=== PATIENT | female | born 1950 | race Caucasian/White ===

== ENCOUNTER → 2018-02-11 | Outpatient (CLI) | payer MEDICARE, OTHER ==
[~2018-02-11] MED LIST: AMLODIPINE BESY10 MG PO; BAYER CHEWABLE81 MG PO; FLEXERIL PO; IBUPROFEN 600600 M1 PO; LEXAPRO20 MG PO; NITROGLYCERIN0.4 MG SUBLING; NORCO 5-325 TA1 EACH PO; NORVASC10 MG PO; TOPROL XL25 MG PO; VICODIN 5-5001 EACH PO; WELLBUTRIN XL150 M1 PO; XANAX XR1 MG PO
[2018-02-11 12:47] LABS: CREATININE 0.9 mg/dL (0.6-1.3)
== END ==
LOC: M.LAB 12:19 → M.MRI 13:30
PROVIDERS: Family Medicine
DX: I10 Essential (primary) hypertension (principal); E11.9 Type 2 diabetes mellitus without complications; N64.4 Mastodynia

== ENCOUNTER → 2018-08-12 | Outpatient (CLI) | payer MEDICARE, OTHER | LOC: M.MRI 10:35 | DX: Z88.8 Allergy status to other drugs, medicaments and biological substances (principal); M22.42 Chondromalacia patellae, left knee ==

== ENCOUNTER 2020-05-14 12:20 | Emergency (ER) | payer MEDICARE, OTHER ==
[~2020-05-14] VITALS: Ht 157.5 cm; Wt 59.0 kg
[~2020-05-14 12:20] MED LIST changes: +BREO ELLIPTA 11 EACH INH; +VENTOLIN HFA 1818 GM INH
[2020-05-14] MEDS ORDERED: HYDROCODON-ACE1 EAC7 PO (13:53)
[2020-05-14] MEDS ORDERED: FLEXERIL PO (14:05)
[2020-05-14 14:08] VITALS: BP 168/81
== END 2020-05-14 14:09 | disposition home or self-care (01) ==
LOC: M.ERS 12:20
DX: M54.6 Pain in thoracic spine (principal); R07.81 Pleurodynia; I10 Essential (primary) hypertension; F17.210 Nicotine dependence, cigarettes, uncomplicated; Z88.1 Allergy status to other antibiotic agents; Z90.710 Acquired absence of both cervix and uterus

== ENCOUNTER → 2020-05-27 | Outpatient (CLI) | payer MEDICARE, OTHER ==
[~2020-05-27] MED LIST changes: +HYDROCODON-ACE1 EAC7 PO
== END ==
LOC: M.MRI 11:09
PROVIDERS: ATTEND Family Medicine
DX: M48.54XA Collapsed vertebra, not elsewhere classified, thoracic region, initial encounter for fracture (principal); M81.0 Age-related osteoporosis without current pathological fracture; M25.78 Osteophyte, vertebrae

== ENCOUNTER → 2020-06-08 | Outpatient (CLI) | payer MEDICARE, OTHER ==
[~2020-06-08] MED LIST changes: +LIPITOR 20 MG T20 M1 PO; +NIZORAL A-D125 ML TOP
== END ==
LOC: M.INT 10:39
PROVIDERS: ATTEND Family Medicine
DX: S22.068A Other fracture of T7-T8 thoracic vertebra, initial encounter for closed fracture (principal); I10 Essential (primary) hypertension; Z90.710 Acquired absence of both cervix and uterus; Z88.8 Allergy status to other drugs, medicaments and biological substances; Z79.899 Other long term (current) drug therapy; X50.9XXA Other and unspecified overexertion or strenuous movements or postures, initial encounter; Y93.89 Activity, other specified; Y92.89 Other specified places as the place of occurrence of the external cause; Y99.8 Other external cause status

== ENCOUNTER → 2020-06-09 | Outpatient (CLI) | payer MEDICARE, OTHER ==
[~2020-06-09] VITALS: Ht 157.5 cm; Wt 57.6 kg
[2020-06-09 08:38] LABS: HEMATOCRIT 45.3 % (37.0-47.0); HEMOGLOBIN 15.4 gm/dL (12.0-15.0); MCH 29.4 pg (26.0-34.0); MCHC 34.1 g/dL (28.0-37.0); MCV 86.2 fL (80.0-100.0); MPV 8.8 fl. (7.2-11.1); RBC 5.25 mil/uL (4.20-5.00); RDW-CV 12.7 % (10.5-14.5); WBC 6.9 thou/uL (4.0-11.0)
[2020-06-09 08:41] VITALS: BP 137/69
[2020-06-09 08:47] LABS: CALCIUM 9.3 mg/dL (8.5-10.1); CREATININE 0.8 mg/dL (0.6-1.3); POTASSIUM 3.1 mmol/L (3.5-5.1)
[2020-06-09 08:50] LABS: APTT 24.5 Seconds (25.0-31.3); PROTIME 10.5 Seconds (9.20-11.50)
[2020-06-09 08:51] LABS: ALBUMIN 3.9 g/dL (3.4-5.0); TOTAL PROTEIN 7.8 g/dL (6.4-8.2)
[2020-06-09 12:05] VITALS: BP 136/61
[2020-06-09 12:21] VITALS: BP 138/71
[2020-06-09 12:36] VITALS: BP 139/62
[2020-06-09 12:52] VITALS: BP 149/78
== END | disposition home or self-care (01) ==
LOC: M.INT 08:06
PROVIDERS: ATTEND Radiology Diagnostic Radiology
DX: M54.9 Dorsalgia, unspecified (principal); M80.08XA Age-related osteoporosis with current pathological fracture, vertebra(e), initial encounter for fracture; I10 Essential (primary) hypertension; M19.90 Unspecified osteoarthritis, unspecified site; J45.909 Unspecified asthma, uncomplicated; F32.9 Major depressive disorder, single episode, unspecified; F41.9 Anxiety disorder, unspecified; F17.210 Nicotine dependence, cigarettes, uncomplicated; Z98.890 Other specified postprocedural states; Z79.899 Other long term (current) drug therapy; Z90.710 Acquired absence of both cervix and uterus; Z88.8 Allergy status to other drugs, medicaments and biological substances

== ENCOUNTER → 2021-01-04 | Outpatient (CLI) | payer OTHER | LOC: M.CT 11:32 | PROVIDERS: ATTEND Family Medicine | DX: N28.89 Other specified disorders of kidney and ureter (principal); E27.8 Other specified disorders of adrenal gland; J98.4 Other disorders of lung ==

== ENCOUNTER → 2021-01-20 | Outpatient (CLI) | payer OTHER | LOC: M.ULTRA 12:26 | PROVIDERS: ATTEND Family Medicine | DX: I65.23 Occlusion and stenosis of bilateral carotid arteries (principal); I10 Essential (primary) hypertension; E78.5 Hyperlipidemia, unspecified; R22.9 Localized swelling, mass and lump, unspecified ==

== ENCOUNTER → 2021-01-20 | Outpatient (CLI) | payer OTHER | LOC: M.CT 12:21 | PROVIDERS: ATTEND Family Medicine | DX: Z13.6 Encounter for screening for cardiovascular disorders (principal) ==

== ENCOUNTER → 2021-04-10 | Outpatient (CLI) | payer OTHER ==
[~2021-04-10] VITALS: Ht 157.5 cm; Wt 55.8 kg
--- NOTE | 2021-04-10 15:11 | EXE ---
[place] [address] STRESS ECHOCARDIOGRAM Name: NILA LEE Room: [facility]#: [id number] Admission: 04/10/21 Attend Phys: Татьяна Vega, Discharge: Date of : 54 Date of Service: 04/10/21 1510 Report #: [id number] THIS REPORT FOR: cc: Joya Field Maggie M. DO Blick, David R. MD [facility] ~ APPROVED REPORT Study performed: 04/10/2021 13:54:30 Exam: Dobutamine Stress Echo Indication: Dyspnea Patient Location: Out-Patient Stress Nurse: Perla Bingham RN Supervising Physician: Aneudy Morris MD Ht: 5 ft 2 in HR: 63 bpm BP: 130/74 mmHg Medical History Cardiac Risk Factors: Hyperlipidemia, HTN, Tobacco History (Current/Recent), FHX of CAD Procedure The patient underwent a Pharmacological Stress Test using Dobutamine. Blood pressure, heart rate, and EKG were monitored. An Echocardiogram was performed by optical coating technician in four stages in quad fashion. At peak stress, four selected images were obtained and placed side by side with resting images for comparison. Stress Test Details Stress Test: Pharmacological Stress Test using Dobutamine. Reason for pharmacologic stress test: physical limitation. HR Resting HR: 63 bpm Max Heart Rate (APMHR): 152 bpm Max HR Achieved: 130 bpm Target HR (85% APMHR): 129 bpm % of APMHR: 85 Recovery HR: 71 bpm HR response to stress: Normal HR response to stress BP Resting BP: 130/74 mmHg Max BP: 90/59 [place] [address] STRESS ECHOCARDIOGRAM Name: NILA LEE Room: [facility]#: [id number] Admission: 04/10/21 Attend Phys: Татьяна Vega, Discharge: Date of : 54 Date of Service: 04/10/21 1510 Report #: [id number] Recovery BP: 112/62 mmHg BP response to stress: Abnormal hypotensive response to stress. ECG Resting ECG: Sinus Rhythm Stress ECG: Sinus Tachycardia ST Change: None Maximum ST Deviation: 0 mm Arrhythmia: None Recovery ECG: Sinus Rhythm Recovery ST Change: None Recovery ST Deviation: 0 mm Recovery Arrhythmia: APC Clinical Reason for Termination: Completed protocol Pre-Stress Echo The resting Echocardiogram showed normal left ventricular contractility with an estimated Ejection Fraction of about 60-65%. The resting echocardiogram demonstrated normal wall motion in all wall segments. Post-Stress Echo The stress Echocardiogram showed normal left ventricular contractility with an estimated Ejection Fraction of about >70%. Compared to rest, there were no stress-induced wall motion abnormalities. Conclusion Clinical Response: Non-ischemic Stress ECG Response: Non-ischemic Stress Echo Images: Non-ischemic low risk dobutamine stress echo for predicting future cardiac events. Other Information Study Quality: Excellent <Conclusion> [place] [address] STRESS ECHOCARDIOGRAM Name: [facility]ILA LEE [id number] Admission: 04/10/21 Attend Phys: Татьяна Vega, Discharge: Date of : 54 Date of Service: 04/10/211509 Report #: [id number] low risk dobutamine stress echo for predicting future cardiac events. <ELECTRONICALLY SIGNED> By: Aneudy Morris MD, FACC 04/10/211509 09 09 Aneudy Morris MD, FACC /INF
== END ==
LOC: M.CRD 02-27 11:00
PROVIDERS: ATTEND Nurse Practitioner
DX: R93.1 Abnormal findings on diagnostic imaging of heart and coronary circulation (principal); R06.00 Dyspnea, unspecified